=== PATIENT | male | born 1985 | race Two or more races ===

== ENCOUNTER 2020-04-23 16:31 | Inpatient (IN) | payer OTHER ==
[~2020-04-23] VITALS: Ht 170.2 cm; Wt 90.8 kg
[2020-04-23 18:07] LABS: Basophils # (auto) 0.1 10 ^3/uL (0-0.2); Basophils % (auto) 1.2 % (0.0-2.0); Eosinophils # (auto) 0.1 10 ^3/uL (0-0.8); Eosinophils % (auto) 0.9 % (0.0-7.0); Hemoglobin 15.3 g/dL (13.5-17.5); Lymphocytes # (auto) 1.7 10 ^3/uL (0.4-5.4); Mean Corpuscular Hemoglobin 31.4 pg (28.0-32.0); Mean Corpuscular Hgb Conc. 36.4 g/dL (32.0-36.0); Mean Corpuscular Volume 86.3 fL (80.0-100.0); Monocytes # (auto) 0.5 10 ^3/uL (0-1.3); Monocytes % (auto) 8.5 % (0.0-12.0); Neutrophils # (auto) 3.8 10 ^3/uL (1.6-8.6); Neutrophils % (auto) 61.4 % (37.0-80.0); Nucleated Red Blood Cells % 0.2 %; Platelet Count (auto) 262 10^3/uL (140-450); Red Blood Cells 4.86 10^6/uL (4.5-5.90); Red Cell Distribution Width 12.9 % (11.8-14.3); White Blood Cell 6.2 10^3/uL (4.4-10.8)
[2020-04-23 18:29] LABS: Albumin 3.8 g/dL (3.4-5.0); BUN/Creatinine Ratio 22.5; Calcium 8.7 mg/dL (8.5-10.1); Potassium 4.3 mmol/L (3.5-5.1)
[2020-04-23 18:32] LABS: Bilirubin, Total 0.8 mg/dL (0.2-1.0); Total Protein 7.2 g/dL (6.4-8.2)
[2020-04-23 19:05] LABS: INR 2.08 (0.9-1.15); Partial Thromboplastin Time 36.7 sec (23.0-31.2)
[2020-04-23] MEDS ORDERED: ACETAMINOPHEN 325 MG TAB PO ONE (19:45)
[2020-04-23] MEDS ORDERED: HEPARIN SODIUM (PORCINE) 5000 UNITS/ML 1ML VIAL IV ONE (21:15)
[2020-04-23 21:49] LABS: Basophils # (auto) 0.1 10 ^3/uL (0-0.2); Basophils % (auto) 0.7 % (0.0-2.0); Eosinophils # (auto) 0 10 ^3/uL (0-0.8); Eosinophils % (auto) 0.3 % (0.0-7.0); Hemoglobin 15.4 g/dL (13.5-17.5); Lymphocytes # (auto) 1.4 10 ^3/uL (0.4-5.4); Lymphocytes % (auto) 19.1 % (10.0-50.0); Mean Corpuscular Hemoglobin 30.9 pg (28.0-32.0); Mean Corpuscular Volume 88.1 fL (80.0-100.0); Monocytes # (auto) 0.6 10 ^3/uL (0-1.3); Monocytes % (auto) 7.4 % (0.0-12.0); Neutrophils # (auto) 5.5 10 ^3/uL (1.6-8.6); Neutrophils % (auto) 72.5 % (37.0-80.0); Nucleated Red Blood Cells % 0.1 %; Platelet Count (auto) 262 10^3/uL (140-450); Red Cell Distribution Width 13.1 % (11.8-14.3); White Blood Cell 7.6 10^3/uL (4.4-10.8)
[2020-04-23 21:56] LABS: INR 2.11 (0.9-1.15); Partial Thromboplastin Time 36.6 sec (23.0-31.2)
[2020-04-23] MEDS: GABAPENTIN 300 MG CAP PO SCH (22:07)
[2020-04-23] MEDS: HEPARIN DRIP/D5W 100UNITS/ML 250 ML IV SCH (22:11)
--- NOTE | 2020-04-23 23:04 | NUR ---
MS admit from ER NATALIA TATE admitted to tele/MS after SBAR received. Patient oriented to MALLORIE CAMERON, RN primary RN, unit, room, bed, and unit policies regarding patient care and visiting hours. Patient weighed by bedscale and encouraged to call if they need something. All questions and concerns addressed, patient verbalized understanding. bed in low position and call light within reach.
[2020-04-23 23:25] VITALS: BP 119/71
--- NOTE | 2020-04-23 23:38 | NUR ---
left message to float operator for md bardales, patient requesting pain medication. awaiting call back
--- NOTE | 2020-04-23 23:46 | NUR ---
Spoke with md Nieves. new orders received orders read back and verified by md nieves.
[2020-04-23] MEDS ORDERED: WARF7.5T20 PO (23:51)
[2020-04-23] MEDS ORDERED: GABA300C10 PO (23:51)
[2020-04-23] MEDS ORDERED: BACL10TA PO (23:51)
[2020-04-24] MEDS: HYDROcodone-ACET 10/325MG TAB PO PRN ×3 (00:14→16:23)
--- NOTE | 2020-04-24 00:14 | NUR ---
PAIN PAIN TO LEFT LEG 8/10 BURNING/ACHING PATIENT MEDICATED FOR PAIN.
--- NOTE | 2020-04-24 01:14 | NUR ---
pain reassessment pain 0/10 patient sleeping bilateral chest rise and fall,no signs of sob distress or pain
--- NOTE | 2020-04-24 04:00 | NUR ---
called lab to make aware of ptt
--- NOTE | 2020-04-24 04:40 | NUR ---
yard laborer on unit notified of timed ptt.
--- NOTE | 2020-04-24 04:42 | NUR ---
PAIN PAIN TO LEFT LEG 8/10 BURNING/ACHING PATIENT MEDICATED FOR PAIN.
--- NOTE | 2020-04-24 04:48 | NUR ---
per ramin wharf laborer she is aware of ptt unable to see if ptt was drawn but she will notify me with lab results once available.
[2020-04-24 05:30] VITALS: BP 110/70
--- NOTE | 2020-04-24 05:42 | NUR ---
pain reassessment pain 03/10 patient no relief with norco this am. MD notified will medicate patient per md order
[2020-04-24] MEDS: NAPROXEN 500 MG TAB PO SCH ×3 (06:00→21:33)
--- NOTE | 2020-04-24 06:01 | NUR ---
spoke with MD bardales informed patient has no relief of pain with norco this am. received new orders from md bardales orders read back and verified by md bardales
[2020-04-24] MEDS: CARISOPRODOL 350 MG TAB PO SCH ×3 (06:46→21:33)
--- NOTE | 2020-04-24 07:20 | NUR ---
mobile lab technician at bedside per mobile lab technician they need to redraw blood due to not enough blood obtain during first blood draw at 0453. yari norman notified.
--- NOTE | 2020-04-24 07:22 | NUR ---
endorsed care to dayshift rn patient denies sob or distress. endorse care to dayshift RN for 0400 am aptt heparin adjustment as lab results are still not available.
[2020-04-24 08:26] LABS: INR 2.61 (0.9-1.15)
[2020-04-24 09:00] VITALS: BP 110/73
[2020-04-24 09:15] LABS: Partial Thromboplastin Time > 135.0 sec (23.0-31.2)
--- NOTE | 2020-04-24 09:29 | NUR ---
LAB REDRAW Received notification of PTT result from lab. Ordered stat re-draw.
[2020-04-24] MEDS: BACLOFEN 10 MG TAB PO SCH (10:42)
[2020-04-24] MEDS: GABAPENTIN 300 MG CAP PO SCH ×2 (10:42→21:33)
--- NOTE | 2020-04-24 11:03 | NUR ---
LAB Lab remains above 135, infusion has been held since 929. Per protocol, will reduce by 3ml/hr. Rate set at 13.5ml
[2020-04-24] MEDS: HEPARIN DRIP/D5W 100UNITS/ML 250 ML IV SCH (12:45)
[2020-04-24 13:00] VITALS: BP 106/61
[2020-04-24] MEDS ORDERED: IOHEXOL 350 MG/ML 100ML IJ ONE (13:16)
--- NOTE | 2020-04-24 13:28 | NUR ---
IV insertion IV access obtained, via clean sterile technique by inserting 20 gauge catheter at left forearm after 1 attempt. IV secured properly. No trauma to site. Patient tolerated well.
[2020-04-24 17:00] VITALS: BP 116/63
--- NOTE | 2020-04-24 18:27 | NUR ---
NEW ORDER PATIENT C/O PAIN BEING UNRESOLVED. SPOKE TO DR. MATT, NEW ORDERS RECEIVED.
--- NOTE | 2020-04-24 19:50 | NUR ---
RECEIVED PATIENT FROM DAY SHIFT RN. PATIENT RESTING IN BED. NO S/S OF DISTRESS NOTED. C/O PAIN @ 7/10 AFTER PAIN MEDICATION GIVEN EARLIER, REINSTRUCTED PATIENT ON SCHEDULE OF PAIN MANAGEMENT, WILL COME BACK FOR PAIN MEDICATION WHEN THE TIME IS DUE AND PER PATIENT REQUESTS. PATIENT VERBALIZED UNDERSTANDING. HOT PACKS APPLIED AT THIS TIME, PATIENT FEELING BETTER. PATIENT IS ON HEPARIN DRIP 13.5ML/HR. LAB CALLED FOR HEPARIN RESULT, STILL WAITING. POC INSTRUCTED AND ENCOURAGED PATIENT TO CALL FOR MANAGER AUDIO IF NEEDED. BED IN LOWEST LOCKED POSITION WITH SIDE RAILS UP X 2. CALL SALINAS WITHIN REACH. GUARDS AT BEDSIDE. CONTINUE TO MONITOR FOR CHANGES Q1H AND PRN.
[2020-04-24 20:10] LABS: INR 2.48 (0.9-1.15)
[2020-04-24 20:13] LABS: Partial Thromboplastin Time > 139.0 sec (23.0-31.2)
--- NOTE | 2020-04-24 20:18 | NUR ---
RECEIVED REPORT FROM LAB FOR CRITICAL APPT > 139, HELD HEPARIN DRIP FROM NOW FOR 1 HOUR, AND WILL RESTART IT AT 2115 @ 10.5ML/HR PER PROTOCOL. PHARMACIST CALLED AND CONFIRMED. CONTINUE TO MONITOR.
[2020-04-24] MEDS: OXYCODONE W/ ACETAMINOPHEN 5/325MG TABLET PO PRN (20:25)
--- NOTE | 2020-04-24 20:25 | NUR ---
MEDICATED PATIENT FOR PAIN @ 03/10 ORDERED. CONTINUE TO MONITOR.
--- NOTE | 2020-04-24 21:20 | NUR ---
REASSESSED PAIN, NO REPORT PAIN ON LEFT LEG. CONTINUE TO MONITOR.
[2020-04-24 22:00] VITALS: BP 107/65
--- NOTE | 2020-04-25 02:43 | NUR ---
PATIENT SLEEPING. NO S/S OF DISTRESS NOTED. CONTINUE CARE.
[2020-04-25] MEDS: HEPARIN DRIP/D5W 100UNITS/ML 250 ML IV SCH ×2 (03:26→10:43)
[2020-04-25 04:35] LABS: INR 2.17 (0.9-1.15)
[2020-04-25 04:36] LABS: Partial Thromboplastin Time 74.2 sec (23.0-31.2)
--- NOTE | 2020-04-25 04:41 | NUR ---
RECEIVED CRITICAL LAB RESULT, APTT 74.2. NO CHANGE ON HEPARIN DRIP, CONTINUE AT 10.5 ML/HR PER PROTOCOL. CONTINUE TO MONITOR.
[2020-04-25 05:00] VITALS: BP 102/49
[2020-04-25] MEDS: CARISOPRODOL 350 MG TAB PO SCH ×2 (05:50→13:51)
--- NOTE | 2020-04-25 07:25 | NUR ---
PT AWAKE, ALERT, ORIENTED x4 EFFORTLESS BREATHING ON ROOM AIR. HEPARIN GTT: 10.5ml/hr IV SITE PATENT. BED LOCKED AND IN LOWEST POSITION, CALL LIGHT WITHIN REACH. WILL CONTINUE TO MONITOR.
[2020-04-25 09:00] VITALS: BP 105/52
[2020-04-25] MEDS: OXYCODONE W/ ACETAMINOPHEN 5/325MG TABLET PO PRN (09:19)
[2020-04-25] MEDS: GABAPENTIN 300 MG CAP PO SCH (09:19)
[2020-04-25] MEDS: BACLOFEN 10 MG TAB PO SCH (09:19)
[2020-04-25] MEDS: NAPROXEN 500 MG TAB PO SCH (09:19)
[2020-04-25 10:23] LABS: INR 1.98 (0.9-1.15)
[2020-04-25 10:26] LABS: Partial Thromboplastin Time 89.2 sec (23.0-31.2)
--- NOTE | 2020-04-25 10:35 | NUR ---
PTT: 89.2 INFUSION RATE ADJUSTED PER PROTOCOL: 10.5ml/hr -- 8.5ml/hr RATE ADJUSTMENT VERIFIED BY LETY ACHARYA PTT IN 6HRS. WILL CONTINUE TO MONITOR.
[2020-04-25 11:42] LABS: Basophils # (auto) 0 10 ^3/uL (0-0.2); Basophils % (auto) 0.8 % (0.0-2.0); Eosinophils # (auto) 0.1 10 ^3/uL (0-0.8); Eosinophils % (auto) 1.6 % (0.0-7.0); Hematocrit 42.5 % (41.0-53.0); Hemoglobin 14.9 g/dL (13.5-17.5); Lymphocytes # (auto) 2.6 10 ^3/uL (0.4-5.4); Lymphocytes % (auto) 46.4 % (10.0-50.0); Mean Corpuscular Hemoglobin 30.8 pg (28.0-32.0); Mean Corpuscular Volume 88.2 fL (80.0-100.0); Monocytes # (auto) 0.6 10 ^3/uL (0-1.3); Monocytes % (auto) 10.6 % (0.0-12.0); Neutrophils # (auto) 2.3 10 ^3/uL (1.6-8.6); Neutrophils % (auto) 40.6 % (37.0-80.0); Nucleated Red Blood Cells % 0.2 %; Platelet Count (auto) 253 10^3/uL (140-450); Red Blood Cells 4.82 10^6/uL (4.5-5.90); White Blood Cell 5.6 10^3/uL (4.4-10.8)
--- NOTE | 2020-04-25 11:59 | NUR ---
HEPARIN GTT DC PER MD ORDER. MD AT BEDSIDE.
[2020-04-25] MEDS ORDERED: APIX5TAB PO (12:01)
[2020-04-25 13:00] VITALS: BP 102/72
--- NOTE | 2020-04-25 14:42 | NUR ---
DISCHARGE INSTRUCTIONS PROVIDED TO PT. PT VERBALIZED UNDERSTANDING FOR FOLLOW UP APPOINTMENT WITH MD AT FACILITY. EDUCATIONAL MATERIAL PROVIDED, ALL QUESTIONS AND CONCERNS ADDRESSED. IV CATHETER DC'D BY STUDENT NURSE RYAN. CLINICAL PACKET PROVIDED TO GUARD, INSTRUCTIONS GIVEN TO PT AND GUARD ON NEW PRESCRIPTION.
[2020-04-25] MEDS ORDERED: APIXABAN 5 MG TAB PO SCH (22:00)
[2020-05-02] MEDS ORDERED: APIXABAN 5 MG TAB PO SCH (22:00)
== END 2020-04-25 15:00 | DRG 556 ==
LOC: EEVIPCON 16:31 → ER 16:31 → EDBD 16:31 → OVERFLOW 16:32 → CENTRAL 23:13
PROVIDERS: ADMIT Internal Medicine; ATTEND Internal Medicine
DX: M25.552 Pain in left hip (principal); D68.61 Antiphospholipid syndrome; I82.502 Chronic embolism and thrombosis of unspecified deep veins of left lower extremity; Z20.828 Contact with and (suspected) exposure to other viral communicable diseases; M21.952 Unspecified acquired deformity of left thigh; F12.90 Cannabis use, unspecified, uncomplicated; Z79.01 Long term (current) use of anticoagulants; Z83.3 Family history of diabetes mellitus
CPT/HCPCS: 36415; 73502; 73706; 80053; 81241; 85025; 85301; 85302; 85305; 85306; 85379; 85610; 85652; 85730; 86038; 86431; 93971; G0378

== ENCOUNTER 2020-05-07 19:48 | Emergency (ER) | payer OTHER ==
[~2020-05-07] VITALS: Ht 172.7 cm; Wt 95.3 kg
[~2020-05-07 19:48] MED LIST: APIX5TAB PO; BACL10TA PO; GABA300C10 PO
[2020-05-08 00:23] VITALS: BP 125/91
== END 2020-05-08 00:53 | disposition home or self-care (01) ==
LOC: EDBD 19:48 → ER 19:56 → EEVIPCON 19:56 → ER 05-08 00:53
DX: S76.012A Strain of muscle, fascia and tendon of left hip, initial encounter (principal); S39.012A Strain of muscle, fascia and tendon of lower back, initial encounter; Z79.899 Other long term (current) drug therapy; X58.XXXA Exposure to other specified factors, initial encounter; Y93.89 Activity, other specified; Y92.89 Other specified places as the place of occurrence of the external cause; Y99.8 Other external cause status
CPT/HCPCS: 72131; 73700; 93971